=== PATIENT | female | born 1995 | race Caucasian/White ===

== ENCOUNTER → 2016-10-07 | Outpatient (CLI) | payer OTHER ==
[~2016-10-07] VITALS: Ht 165.1 cm; Wt 63.0 kg
[~2016-10-07] MED LIST: B COMPLETE1 EACH PO; NOHOMEMEDS; PRENATAL TABLE1 EAC3 PO; VENTOLIN HFA18 GM IH; ZOFRAN8 MG PO; ZOLOFT50 MG PO
[2016-10-07 09:07] VITALS: BP 116/75
== END | disposition home or self-care (01) ==
LOC: IVINF 08:30
DX: O21.1 Hyperemesis gravidarum with metabolic disturbance (principal)
CPT/HCPCS: 96361; 96374; J2765; J7120

== ENCOUNTER 2017-04-10 08:12 | Inpatient (IN) | payer OTHER ==
[2017-04-10] VITALS (20 sets, daily range): BP systolic 108–134; BP diastolic 64–85
[~2017-04-10] VITALS: Ht 165.1 cm; Wt 68.0 kg
[2017-04-10 09:37] LABS: BASOPHIL COUNT 0.1 K/uL (0-0.1); EOSINOPHIL (%) 0.5 % (0-5); EOSINOPHIL COUNT 0.1 K/uL (0-0.3); HEMATOCRIT 40.2 % (36.0-46.0); IMMATURE GRANULOCYTE (%) 2.5 % (0.0-0.7); IMMATURE GRANULOCYTE COUNT 0.5 K/uL; INSTRUMENT ABS NEUTROPHIL CT 15.2 K/uL; LYMPHOCYTE COUNT 2.2 K/uL (1.0-2.8); MCH 28.8 PG (29.0-34.0); MCHC 34.3 G/DL (30.0-36.0); MCV 83.8 FL (83-99); MEAN PLAT.VOLUME 9.8 uM^3 (9.5-12.4); MONOCYTE (%) 3.7 % (3-12); MONOCYTE COUNT 0.7 K/uL (0-0.8); NEUTROPHIL (%) 81.4 % (45-76); NEUTROPHIL COUNT 15.2 K/uL (1.8-6.4); PLATELET COUNT 216 K/uL (156-360); RBC DIS.WIDTH-CV 13.4 % (11.8-14.6); RBC DIS.WIDTH-SD 41.2 % (39-53); WHITE BLOOD COUNT 18.7 K/uL (4.1-10.2)
[2017-04-10 10:32] LABS: DRSB INTERNAL CONTROL PASS; PROBE CHECK PASS; SPECIMEN PROCESSING CONTROL PASS
[2017-04-10] MEDS ORDERED: IBUPROFEN800 MG PO (22:53)
[2017-04-11 00:11] VITALS: BP 127/77
[2017-04-11 01:04] VITALS: BP 120/78
[2017-04-11 07:34] VITALS: BP 127/84
[2017-04-11 15:26] VITALS: BP 125/86
[2017-04-11 23:55] VITALS: BP 122/75
== END 2017-04-12 12:00 | disposition home or self-care (01) | DRG 775 ==
LOC: LDRP-OP 08:12 → 2WEST 08:14 → LDRP-OP 05-30 06:52
PROVIDERS: Nurse Practitioner
PROC: 00HU33Z Insertion of Infusion Device into Spinal Canal, Percutaneous Approach (ICD-10-PCS; principal; 2017-04-10)
PROC: 10D07Z3 Extraction of Products of Conception, Low Forceps, Via Natural or Artificial Opening (ICD-10-PCS; principal; 2017-04-10)
PROC: 3E0R3BZ Introduction of Anesthetic Agent into Spinal Canal, Percutaneous Approach (ICD-10-PCS; principal; 2017-04-10)
DX: O42.02 Full-term premature rupture of membranes, onset of labor within 24 hours of rupture (principal); O69.81X0 Labor and delivery complicated by cord around neck, without compression, not applicable or unspecified; O99.52 Diseases of the respiratory system complicating childbirth; J45.909 Unspecified asthma, uncomplicated; Z37.0 Single live birth; Z3A.37 37 weeks gestation of pregnancy
CPT/HCPCS: 85025; 85025 91; 86850; 86900; 86901; 87653; C1755; J2405; J3010; J7120